=== PATIENT | male | born 1940 | race Two or more races ===

== ENCOUNTER 2017-10-24 12:55 | Outpatient (CLI) | payer OTHER ==
[~2017-10-24 12:55] MED LIST: CARDURA XL4 MG/BOTTL; HYZAAR 100-121 UDTAB; HYZAAR 100-251 UDTAB PO; LASIX20 MG; LIPITOR20 MG; LISINOPRIL1 GM; LISINOPRIL20 MG; NEURONTIN300 MG PO; PLAVIX75 MG; PROCARDIA90 MG/BLIS; ZANTAC150 MG PO; ZOCOR20 MG; ZOCOR5 MG
== END 2017-10-24 13:19 | disposition home or self-care (01) ==
LOC: RAD 12:55
DX: M47.816 Spondylosis without myelopathy or radiculopathy, lumbar region (principal); D68.8 Other specified coagulation defects

== ENCOUNTER 2017-11-18 05:52 | Day surgery (SDC) | payer OTHER | END 2017-11-18 11:58 | disposition home or self-care (01) | LOC: CIR.AMB 05:52 | DX: M99.73 Connective tissue and disc stenosis of intervertebral foramina of lumbar region (principal) ==

== ENCOUNTER 2017-12-09 05:30 | Day surgery (SDC) | payer OTHER | END 2017-12-09 11:00 | disposition home or self-care (01) | LOC: CIR.AMB 05:30 | DX: M46.86 Other specified inflammatory spondylopathies, lumbar region (principal); M43.26 Fusion of spine, lumbar region ==

== ENCOUNTER → 2018-01-11 | Outpatient (CLI) | payer OTHER | END | disposition home or self-care (01) | LOC: RAD 14:40 | DX: Z01.818 Encounter for other preprocedural examination (principal) ==

== ENCOUNTER 2018-01-20 06:43 | Day surgery (SDC) | payer OTHER | END 2018-01-20 11:35 | disposition home or self-care (01) | LOC: CIR.AMB 06:43 | DX: M51.16 Intervertebral disc disorders with radiculopathy, lumbar region (principal); M54.5 Low back pain ==

== ENCOUNTER 2018-10-16 13:11 | Outpatient (CLI) | payer OTHER | END 2018-10-16 13:55 | disposition home or self-care (01) | LOC: RAD 13:11 | DX: M47.817 Spondylosis without myelopathy or radiculopathy, lumbosacral region (principal); M54.17 Radiculopathy, lumbosacral region; Z01.810 Encounter for preprocedural cardiovascular examination ==

== ENCOUNTER 2018-10-27 09:46 | Day surgery (SDC) | payer OTHER | END 2018-10-27 14:30 | disposition home or self-care (01) | LOC: CIR.AMB 09:46 | DX: M48.061 Spinal stenosis, lumbar region without neurogenic claudication (principal) ==

== ENCOUNTER 2018-12-05 13:17 | Outpatient (CLI) | payer OTHER | END 2018-12-05 14:42 | disposition home or self-care (01) | LOC: RAD 13:17 | DX: M46.1 Sacroiliitis, not elsewhere classified (principal); M54.17 Radiculopathy, lumbosacral region; M47.816 Spondylosis without myelopathy or radiculopathy, lumbar region ==

== ENCOUNTER 2019-12-20 12:55 | Emergency (ER) | payer OTHER ==
[~2019-12-20] VITALS: Ht 162.6 cm; Wt 77.1 kg
[2019-12-20] MEDS ORDERED: GLIMEPIRIDE2 MG PO (13:45)
== END 2019-12-20 16:39 | disposition home or self-care (01) ==
LOC: ER 12:55
DX: E11.65 Type 2 diabetes mellitus with hyperglycemia (principal)

== ENCOUNTER 2020-12-11 15:00 | Outpatient (CLI) | payer OTHER ==
[~2020-12-11 15:00] MED LIST changes: +GLIMEPIRIDE2 MG PO
== END 2020-12-11 15:01 | disposition home or self-care (01) ==
LOC: PPH VACUNA 15:00 → EDBD 15:00 → PPH VACUNA 15:01
PROVIDERS: ATTEND Emergency Medicine Pediatric Emergency Medicine
DX: Z23 Encounter for immunization (principal)

== ENCOUNTER 2021-01-01 15:10 | Outpatient (CLI) | payer OTHER | END 2021-01-01 15:17 | disposition home or self-care (01) | LOC: PPH VACUNA 15:10 | PROVIDERS: ATTEND Emergency Medicine Pediatric Emergency Medicine | DX: Z23 Encounter for immunization (principal) ==

== ENCOUNTER 2021-01-30 13:30 | Outpatient (CLI) | payer OTHER | END 2021-01-30 13:39 | disposition home or self-care (01) | LOC: SONOGRAMA 13:30 → MAMO-SONO 14:05 | DX: R31.9 Hematuria, unspecified (principal); R10.9 Unspecified abdominal pain; N18.30 Chronic kidney disease, stage 3 unspecified ==

== ENCOUNTER 2021-11-23 10:55 | Outpatient (CLI) | payer OTHER | END 2021-11-23 10:56 | disposition home or self-care (01) | LOC: NUCLEAR 10:55 | PROVIDERS: ATTEND Internal Medicine | DX: I11.9 Hypertensive heart disease without heart failure (principal); I69.152 Hemiplegia and hemiparesis following nontraumatic intracerebral hemorrhage affecting left dominant side; I70.0 Atherosclerosis of aorta; E11.9 Type 2 diabetes mellitus without complications; Z79.84 Long term (current) use of oral hypoglycemic drugs ==

== ENCOUNTER 2022-03-16 08:11 | Outpatient (CLI) | payer OTHER | END 2022-03-16 08:23 | disposition home or self-care (01) | LOC: SONOGRAMA 08:11 | PROVIDERS: ATTEND Specialist/Technologist, Other Nephrology | DX: R10.9 Unspecified abdominal pain (principal); N18.30 Chronic kidney disease, stage 3 unspecified; R31.9 Hematuria, unspecified ==

== ENCOUNTER 2022-03-23 13:31 | Outpatient (CLI) | payer OTHER | END 2022-03-23 13:32 | disposition home or self-care (01) | LOC: LAB 13:31 | PROVIDERS: ATTEND Internal Medicine | DX: Z20.828 Contact with and (suspected) exposure to other viral communicable diseases (principal) ==

== ENCOUNTER 2022-03-23 15:05 | Outpatient (CLI) | payer OTHER | END 2022-03-23 15:15 | disposition home or self-care (01) | LOC: PPH VACUNA 15:05 | PROVIDERS: ATTEND Emergency Medicine Pediatric Emergency Medicine | DX: Z23 Encounter for immunization (principal) ==

== ENCOUNTER 2022-05-12 13:44 | Outpatient (CLI) | payer OTHER | END 2022-05-12 13:52 | disposition home or self-care (01) | LOC: MRI 13:44 | PROVIDERS: ATTEND Anesthesiology Pain Medicine | DX: M45.6 Ankylosing spondylitis lumbar region (principal) | CPT/HCPCS: 72148 ==

== ENCOUNTER 2022-10-27 14:57 | Outpatient (CLI) | payer OTHER | END 2022-10-27 15:03 | disposition home or self-care (01) | LOC: RAD 14:57 | PROVIDERS: ATTEND Anesthesiology Pain Medicine | DX: M41.35 Thoracogenic scoliosis, thoracolumbar region (principal); M54.17 Radiculopathy, lumbosacral region; M47.816 Spondylosis without myelopathy or radiculopathy, lumbar region ==